=== PATIENT | female | born 1990 | race African-American/Black ===

== ENCOUNTER 2020-05-11 21:42 | Emergency (ER) | payer SELFPAY ==
[2020-05-11] MEDS ORDERED: Lorazepam 2 MG/ML VIAL ONE ×2 (21:49→23:26)
--- NOTE | 2020-05-11 22:22 | RAD ---
PORTABLE CHEST: Date: 05/11/2020 HISTORY: Fever. Seizures. FINDINGS: Heart size and mediastinum are within normal limits. Lungs appear clear of any definite infiltrative process. No significant bony findings. IMPRESSION: No active intrathoracic disease. POS: OFF
[2020-05-11 22:30] LABS: #Basophils 0.1 thou/uL (0.0-0.2); #Eosinphils 0.2 thou/uL (0.0-0.7); #Lymphocytes 2.1 thou/uL (1.20-3.40); #Monocytes 0.4 thou/uL (0.11-0.59); #Neutrophils 3.3 thou/uL (1.40-6.50); %Basophils 0.9 % (0.0-1.0); %Eosinophils 3.3 % (0.0-10.0); %Lymphocytes 35.2 % (21.0-51.0); %Monocytes 6.1 % (0.0-10.0); %Neutrophils 54.5 % (42.0-75.0); Mean Corpuscular HGB CONC 33.1 g/dL (32.0-36.0); Mean Corpuscular Hemoglobin 33.7 pg (27.0-31.0); Mean Platelet Volume 7.7 fL (7.4-10.4); Platelet Count 352 thou/uL (130-400); RBC Distribution Width 12.1 % (11.5-14.5); Red Blood Cell (RBC) Count 3.57 mill/uL (4.20-5.40)
[2020-05-11 22:33] LABS: Reticulocyte Count 1.4 % (0.5-1.5)
[2020-05-11] MEDS ORDERED: Ketorolac Tromethamine 30 MG/ML VIAL ONE (22:38)
[2020-05-11 22:46] LABS: ALT (SGPT) 14 U/L (8-55); AST (SGOT) 14 U/L (5-34); Albumin 4.1 g/dL (3.5-5.0); Alkaline Phosphatase 79 U/L (40-110); Anion Gap 18 mmol/L (10-20); BUN (Urea Nitrogen) 11 mg/dL (7.0-18.7); Bilirubin, Total Less than 0.2 mg/dL (0.2-1.2); Calc. Creatinine Clearance 0 mL/min (70-130); Calcium 8.5 mg/dL (7.8-10.44); Carbon Dioxide 19 mmol/L (22-29); Chloride 107 mmol/L (98-107); Estimated GFR-MDRD Greater than 90; Globulin 3.1 g/dL (2.4-3.5); Glucose 93 mg/dL (70-105); Potassium 4.5 mmol/L (3.5-5.1); Protein, Total 7.2 g/dL (6.0-8.3); Sodium 139 mmol/L (136-145)
[2020-05-11] MEDS ORDERED: Haloperidol Lactate 5 MG/ML VIAL ONE (23:26)
--- NOTE | 2020-05-12 14:57 | EKG ---
Test Reason : Blood Pressure : / mmHG Vent. Rate : 102 BPM Atrial Rate : 102 BPM P-R Int : 162 ms QRS Dur : 090 ms QT Int : 344 ms P-R-T Axes : 068 064 045 degrees QTc Int : 448 ms Sinus tachycardia Otherwise normal ECG Confirmed by HERNANDEZ HERNANDEZ DO ([id number]), editor publications YOSEPH BARNARD ([id number]) on 05/12/2020 2:57:05 PM Referred By: Confirmed By:HERNANDEZ HERNANDEZ DO
== END 2020-05-12 00:58 | disposition home or self-care (01) ==
LOC: ERS 21:42
DX: G40.909 Epilepsy, unspecified, not intractable, without status epilepticus (principal); G89.29 Other chronic pain; J45.909 Unspecified asthma, uncomplicated; Z79.899 Other long term (current) drug therapy
CPT/HCPCS: 36415; 71045; 80053; 80177; 83605; 83615; 84146; 85025; 85046; 93005; 94760; 96365; 96375; J1630; J1885; J1953; J2060

== ENCOUNTER 2020-05-12 08:20 | Emergency (ER) | payer SELFPAY ==
[2020-05-12 09:05] LABS: #Eosinphils 0.2 thou/uL (0.0-0.7); #Lymphocytes 1.6 thou/uL (1.20-3.40); #Monocytes 0.3 thou/uL (0.11-0.59); #Neutrophils 3.5 thou/uL (1.40-6.50); %Basophils 0.6 % (0.0-1.0); %Eosinophils 3.1 % (0.0-10.0); %Lymphocytes 28.1 % (21.0-51.0); %Monocytes 5.8 % (0.0-10.0); %Neutrophils 62.4 % (42.0-75.0); Hemoglobin 11.7 g/dL (12.0-16.0); Mean Corpuscular HGB CONC 31.9 g/dL (32.0-36.0); Mean Corpuscular Hemoglobin 33.1 pg (27.0-31.0); Mean Platelet Volume 7.3 fL (7.4-10.4); Platelet Count 344 thou/uL (130-400); RBC Distribution Width 12.3 % (11.5-14.5); Red Blood Cell (RBC) Count 3.53 mill/uL (4.20-5.40); Reticulocyte Count 1.5 % (0.5-1.5); White Blood Cell (WBC) Count 5.6 thou/uL (4.8-10.8)
[2020-05-12 09:22] LABS: BHCG - Serum Negative (NEGATIVE); Pregs Control Background? CLEAR/WHITE (CLR/WHITE); Pregs Control Bar Appear? YES (CONTROL BAR)
--- NOTE | 2020-05-12 09:25 | CT ---
CT CERVICAL SPINE WITH CORONAL AND SAGITTAL REFORMATIONS AND NO IV CONTRAST: HISTORY: Injury, neck pain FINDINGS: There is loss of cervical lordosis with mild reversal. No fracture, subluxation or facet malalignment is identified. No prevertebral soft tissue swelling is apparent. The visualized lung apices are unremarkable. IMPRESSION: No CT evidence for fracture or traumatic subluxation.
[2020-05-12 09:31] LABS: ALT (SGPT) 13 U/L (8-55); AST (SGOT) 15 U/L (5-34); Alkaline Phosphatase 71 U/L (40-110); Anion Gap 14 mmol/L (10-20); BUN (Urea Nitrogen) 9 mg/dL (7.0-18.7); Bilirubin, Total 0.2 mg/dL (0.2-1.2); Calc. Creatinine Clearance 0 mL/min (70-130); Calcium 8.5 mg/dL (7.8-10.44); Carbon Dioxide 23 mmol/L (22-29); Chloride 107 mmol/L (98-107); Estimated GFR-MDRD 89; Glucose 80 mg/dL (70-105); Sodium 140 mmol/L (136-145)
[2020-05-12] MEDS ORDERED: Ketorolac Tromethamine 30 MG/ML VIAL ONE (09:46)
--- NOTE | 2020-05-16 13:46 | EKG ---
Test Reason : SEIZURE Blood Pressure : / mmHG Vent. Rate : 088 BPM Atrial Rate : 088 BPM P-R Int : 176 ms QRS Dur : 096 ms QT Int : 362 ms P-R-T Axes : 061 059 037 degrees QTc Int : 438 ms Normal sinus rhythm Incomplete right bundle branch block Borderline ECG Confirmed by SHAHBAZ Tavarez, LAURI ([id number]), video effects editor YOSEPH BARNARD ([id number]) on 05/16/2020 1:46:12 PM Referred By: Confirmed By:LAURI HARTMANN M.D.
== END 2020-05-12 10:18 | disposition home or self-care (01) ==
LOC: ERS 08:20
DX: G40.909 Epilepsy, unspecified, not intractable, without status epilepticus (principal); J45.909 Unspecified asthma, uncomplicated; D57.1 Sickle-cell disease without crisis
CPT/HCPCS: 72125; 80053; 80177; 84703; 85025; 85046; 93005; 96374; 96375; J1885; J1953

== ENCOUNTER 2020-05-12 16:25 | Emergency (ER) | payer SELFPAY ==
[2020-05-12] MEDS ORDERED: Morphine 4 MG/ML VIAL ONE (16:58)
== END 2020-05-12 18:36 | disposition home or self-care (01) ==
LOC: ERS 16:25
DX: R56.9 Unspecified convulsions (principal); D57.1 Sickle-cell disease without crisis; J45.909 Unspecified asthma, uncomplicated; Z79.899 Other long term (current) drug therapy
CPT/HCPCS: 96372; 99284; J2270

== ENCOUNTER 2020-05-13 17:27 | Emergency (ER) | payer SELFPAY ==
[2020-05-13] MEDS ORDERED: Diazepam 5 MG TAB ONE (17:49)
[2020-05-13] MEDS ORDERED: LEVETIRACETAM IN NACL ONE (17:50)
[2020-05-13] MEDS ORDERED: levETIRAcetam 500 MG TAB PO SCH (18:00)
== END 2020-05-13 18:06 ==
LOC: ERS 17:27
DX: R56.9 Unspecified convulsions (principal); D64.9 Anemia, unspecified; J45.909 Unspecified asthma, uncomplicated; Z87.891 Personal history of nicotine dependence
CPT/HCPCS: 99281; J1953

== ENCOUNTER 2020-05-28 22:29 | Emergency (ER) | payer SELFPAY ==
[2020-05-28 23:39] LABS: Acetaminophen Less than 6.0 mcg/mL (10.0-30.0); Alcohol Less than 10 mg/dL (Less than 10); Salicylate Less than 8.0 mg/dL (15.0-30.0)
[2020-05-28 23:42] LABS: ALT (SGPT) 16 U/L (8-55); AST (SGOT) 13 U/L (5-34); Alkaline Phosphatase 75 U/L (40-110); Anion Gap 15 mmol/L (10-20); BUN (Urea Nitrogen) 12 mg/dL (7.0-18.7); Bilirubin, Total Less than 0.2 mg/dL (0.2-1.2); Calc. Creatinine Clearance 0 mL/min (70-130); Calcium 8.3 mg/dL (7.8-10.44); Carbon Dioxide 21 mmol/L (22-29); Chloride 107 mmol/L (98-107); Estimated GFR-MDRD Greater than 90; Globulin 2.8 g/dL (2.4-3.5); Glucose 105 mg/dL (70-105); Potassium 4.2 mmol/L (3.5-5.1); Protein, Total 6.8 g/dL (6.0-8.3); Sodium 139 mmol/L (136-145)
[2020-05-28] MEDS ORDERED: levETIRAcetam In NaCl (Iso-Os) 1,000 MG in Premix Bag 1 BAG IVPB SCH (23:45)
[2020-05-28] MEDS ORDERED: Ibuprofen 200 MG TAB ONE (23:53)
[2020-05-28 23:58] LABS: #Eosinphils 0.2 thou/uL (0.0-0.7); #Lymphocytes 1.9 thou/uL (1.20-3.40); #Monocytes 0.4 thou/uL (0.11-0.59); #Neutrophils 3.5 thou/uL (1.40-6.50); %Basophils 0.6 % (0.0-1.0); %Eosinophils 3.1 % (0.0-10.0); %Lymphocytes 31.9 % (21.0-51.0); %Monocytes 7.3 % (0.0-10.0); %Neutrophils 57.2 % (42.0-75.0); Hemoglobin 11.3 g/dL (12.0-16.0); Mean Corpuscular HGB CONC 33.5 g/dL (32.0-36.0); Mean Corpuscular Hemoglobin 33.9 pg (27.0-31.0); Mean Platelet Volume 7.8 fL (7.4-10.4); Platelet Count 288 thou/uL (130-400); RBC Distribution Width 12.2 % (11.5-14.5); Red Blood Cell (RBC) Count 3.34 mill/uL (4.20-5.40); White Blood Cell (WBC) Count 6.1 thou/uL (4.8-10.8)
[2020-05-28 23:59] LABS: Reticulocyte Count 1.5 % (0.5-1.5)
[2020-05-29 00:04] LABS: BHCG - Serum Negative (NEGATIVE); Pregs Control Background? CLEAR/WHITE (CLR/WHITE); Pregs Control Bar Appear? YES (CONTROL BAR)
[2020-05-29 00:08] LABS: Bilirubin Negative (Negative); Blood, Urine Negative (Negative); Clarity Clear (Clear); Glucose, Urine (Dipstick) Normal (Negative); Ketone, Urine Negative (Negative); Leukocyte Negative Leu/uL (Negative); Nitrite Negative (Negative); Protein, Urine (Dipstick) Negative (Neg-Trace); Specific Gravity, Urine 1.029 (1.002-1.036); Urobilinogen Normal mg/dL (Less than 2); pH, Urine 6.5 (5.0-9.0)
[2020-05-29 00:16] LABS: Amphetamine Not Detected (NotDetected); Barbiturates Screen Not Detected (NotDetected); Benzodiazepine Screen Detected (NotDetected); Cocaine Metabolite Screen Not Detected (NotDetected); Medtox Control Line Valid? VALID (VALID); Medtox Reader # READER 1; Methadone Not Detected (NotDetected); Methamphetamine Not Detected (NotDetected); Opiate Screen Not Detected (NotDetected); Oxycodone Screen Not Detected (NotDetected); Phencyclidine (PCP) Not Detected (NotDetected); THC/Cannabinoid Screen Not Detected (NotDetected); Tricyclic Screen Not Detected (NotDetected)
--- NOTE | 2020-05-29 05:35 | CT ---
CT BRAIN 05/28/20 PROVIDED CLINICAL HISTORY: Seizure, altered mental status. FINDINGS: No comparison. The ventricular system appears normal in size and morphology. There is no evidence for intracranial h emorrhage or mass effect. The extracranial soft tissues and osseous structures demonstrate an unremar kable CT appearance. IMPRESSION: No evidence for intracranial hemorrhage or mass effect. POS: RAYO
== END 2020-05-29 00:58 | disposition home or self-care (01) ==
LOC: ERS 22:29
DX: R56.9 Unspecified convulsions (principal); D57.1 Sickle-cell disease without crisis; J45.909 Unspecified asthma, uncomplicated; Z79.899 Other long term (current) drug therapy
CPT/HCPCS: 36415; 36416; 70450; 80053; 80177; 80306; 80307; 81003; 83605; 84703; 85025; 85046; 93005; 96365; J1953

== ENCOUNTER 2020-06-19 19:21 | Inpatient (IN) | payer OTHER, SELFPAY ==
[2020-06-19] MEDS ORDERED: Lorazepam 2 MG/ML VIAL ONE ×2 (19:26→19:30)
[2020-06-19 20:02] LABS: #Basophils 0.1 thou/uL (0.0-0.2); #Eosinphils 0.2 thou/uL (0.0-0.7); #Lymphocytes 1.8 thou/uL (1.20-3.40); #Monocytes 0.3 thou/uL (0.11-0.59); #Neutrophils 2.8 thou/uL (1.40-6.50); %Basophils 1.4 % (0.0-1.0); %Eosinophils 4.5 % (0.0-10.0); %Lymphocytes 35.1 % (21.0-51.0); %Monocytes 6.4 % (0.0-10.0); %Neutrophils 52.6 % (42.0-75.0); Hemoglobin 12.4 g/dL (12.0-16.0); Mean Corpuscular HGB CONC 32.5 g/dL (32.0-36.0); Mean Corpuscular Hemoglobin 33.3 pg (27.0-31.0); Platelet Count 293 thou/uL (130-400); RBC Distribution Width 12.1 % (11.5-14.5); Red Blood Cell (RBC) Count 3.72 mill/uL (4.20-5.40); White Blood Cell (WBC) Count 5.2 thou/uL (4.8-10.8)
[2020-06-19 20:16] LABS: Acetaminophen Less than 6.0 mcg/mL (10.0-30.0); Alcohol Less than 10 mg/dL (Less than 10); Salicylate Less than 8.0 mg/dL (15.0-30.0)
[2020-06-19 20:25] LABS: ALT (SGPT) 11 U/L (8-55); AST (SGOT) 13 U/L (5-34); Alkaline Phosphatase 66 U/L (40-110); Anion Gap 11 mmol/L (10-20); BUN (Urea Nitrogen) 9 mg/dL (7.0-18.7); Bilirubin, Total 0.2 mg/dL (0.2-1.2); Calc. Creatinine Clearance 0 mL/min (70-130); Calcium 8.4 mg/dL (7.8-10.44); Carbon Dioxide 23 mmol/L (22-29); Chloride 109 mmol/L (98-107); Estimated GFR-MDRD Greater than 90; Glucose 87 mg/dL (70-105); Sodium 139 mmol/L (136-145)
[2020-06-19] MEDS ORDERED: Morphine 4 MG/ML VIAL ONE (20:32)
[2020-06-19] MEDS ORDERED: Ondansetron PF 4 MG/2 ML Vial ONE (20:32)
[2020-06-19 20:39] LABS: Reticulocyte Count 1.2 % (0.5-1.5)
[2020-06-19 20:46] LABS: Bilirubin Negative (Negative); Blood, Urine Negative (Negative); Clarity Extra Turbid (Clear); Glucose, Urine (Dipstick) Normal (Negative); Ketone, Urine Negative (Negative); Leukocyte 500 Leu/uL (Negative); Mucous/LPF 1+ LPF (<2+); Nitrite Negative (Negative); Protein, Urine (Dipstick) 30 mg/dL (Neg-Trace); Specific Gravity, Urine 1.028 (1.002-1.036); Squamous Epithelial 21-50 HPF (0-3); Urobilinogen Normal mg/dL (Less than 2); WBC/HPF 21-50 HPF (0-3); pH, Urine 5.5 (5.0-9.0)
[2020-06-19] MEDS ORDERED: methylPREDNISolone Sod Succ/PF 125 MG/2 ML VIAL ONE (20:52)
[2020-06-19] MEDS ORDERED: diphenhydrAMINE 50 MG CAP ONE (20:52)
[2020-06-19] MEDS ORDERED: diphenhydrAMINE 50 MG/ML VIAL ONE (20:52)
[2020-06-19] MEDS ORDERED: Famotidine/PF 20 mg/2ml Vial ONE (20:52)
[2020-06-19 20:53] LABS: Bacteria/HPF 3+ HPF (None Seen)
[2020-06-19] MEDS ORDERED: Ketorolac Tromethamine 30 MG/ML VIAL ONE (21:37)
[2020-06-19] MEDS ORDERED: Promethazine HCl 25 MG/ML VIAL ONE (21:42)
--- NOTE | 2020-06-19 21:59 | RAD ---
Chest one view HISTORY: Seizures. COMPARISON: 05/11/2020. FINDINGS: Cardiac silhouette and pulmonary vasculature are unremarkable. Mediastinum is midline. No c onfluent airspace consolidation or evidence of pneumothorax. IMPRESSION : No abnormalities are demonstrated.
[2020-06-19] MEDS ORDERED: HYDROcodone/Acetaminophen 5/325 mg Tablet PO PRN (23:03)
[2020-06-19] MEDS ORDERED: Acetaminophen 325 MG TAB PO PRN (23:03)
[2020-06-19] MEDS ORDERED: Sodium Chloride 0.9% 1,000 ML IV SCH (23:15)
--- NOTE | 2020-06-19 23:16 | PDOC.HHP ---
Hospitalist HPI - History of Present Illness Seizures History of Present Illness: 29-year-old, who claims she has a history of seizure disorder and sickle cell disease presented to the emergency department due to multiple seizure episodes at home. Patient stated she is on carbamazepine and Keppra for seizures. She could not refill these medications and therefore missed taking them for 10 days. She says she was diagnosed with epilepsy at the age of 14. ED staff report patient had about 20 more episodes of seizures which was described as hands and leg shaking. According to report patient was lucid in between seizures. According to report patient stopped seizing when an ammonia capsule was placed under her nostril to alert her. Patient was given 1 g IV Keppra, a total of 4 mg of IV Ativan, there was a report she received 10 mg of IV diazepam by EMS. She was also complaining of sickle cell pain was given a dose of IV morphine. It appears patient developed a rash after the IV morphine and was given IV Benadryl and IV Solu-Medrol. Patient was groggy but easily arousable and was able to provide history. She stated her PCP Dr. Quintero prescribes her antiepileptics. She stated she was recently released from incarceration. There was no report of fever or chills or dysuria or shortness of breath or cough. Her prolactin level was high in the ED. UA suggest the presence of UTI. Hospitalist ROS - Review of Systems Other: No tongue biting, stool or urine incontinence associated with her seizures. Except as documented, all other systems reviewed and negative. - Medication Medications: Patient home medications reviewed. States she takes Keppra 500 mg a.m. and 1000 mg p.m.. Tegretol 200 mg twice daily Hospitalist History - Past Medical History Other Medical History: Seizure disorder. Sickle cell disease. - Family History Other Family History: She states her dad had sickle cell disease and mom has sickle cell trait. She states her daughter also sometimes gets seizures. - Social History Smoking Status: Former smoker Alcohol: reports: None Drugs: reports: Other (Quit abusing illicit drugs.) - Exam General Appearance: NAD General - other findings: Drowsy Eye: PERRL, anicteric sclera ENT: normocephalic atraumatic, no oropharyngeal lesions, moist mucosa Neck: supple, symmetric, no JVD, no thyromegaly Heart: RRR, no murmur, no gallops Respiratory: CTAB, no wheezes, no rales Gastrointestinal: soft, non-tender, non-distended, normal bowel sounds Extremities: no cyanosis, no edema Skin: normal turgor, no rashes Neurological: cranial nerve grossly intact, no weakness, no focal deficits Hospitalist Results - Labs Result Diagrams: 06/20/20 04:56 06/20/20 04:56 Lab results: WBC 5.2 thou/uL (4.8-10.8) 06/19/20 19:53 Hgb 12.4 g/dL (12.0-16.0) 06/19/20 19:53 Hct 38.1 % (36.0-47.0) 06/19/20 19:53 MCV 102.0 fL (78.0-98.0) H 06/19/20 19:53 Plt Count 293 thou/uL (130-400) 06/19/20 19:53 Neutrophils % 52.6 % (42.0-75.0) 06/19/20 19:53 Sodium 139 mmol/L (136-145) 06/19/20 19:53 Potassium 4.0 mmol/L (3.5-5.1) 06/19/20 19:53 Chloride 109 mmol/L (98-107) H 06/19/20 19:53 Carbon Dioxide 23 mmol/L (22-29) 06/19/20 19:53 BUN 9 mg/dL (7.0-18.7) 06/19/20 19:53 Creatinine 0.87 mg/dL (0.6-1.1) 06/19/20 19:53 Glucose 87 mg/dL (70-105) 06/19/20 19:53 Calcium 8.4 mg/dL (7.8-10.44) 06/19/20 19:53 Total Bilirubin 0.2 mg/dL (0.2-1.2) 06/19/20 19:53 AST 13 U/L (5-34) 06/19/20 19:53 ALT 11 U/L (8-55) 06/19/20 19:53 Alkaline Phosphatase 66 U/L (40-110) 06/19/20 19:53 Serum Total Protein 7.0 g/dL (6.0-8.3) 06/19/20 19:53 Albumin 4.0 g/dL (3.5-5.0) 06/19/20 19:53 Urine Ketones Negative mg/dL (Negative) 06/19/20 20:15 Urine Blood Negative (Negative) 06/19/20 20:15 Urine Nitrite Negative (Negative) 06/19/20 20:15 Ur Leukocyte Esterase 500 David/uL (Negative) A 06/19/20 20:15 Urine RBC 4-6 HPF (0-3) A 06/19/20 20:15 Urine WBC 21-50 HPF (0-3) A 06/19/20 20:15 Ur Squamous Epith Cells 21-50 HPF (0-3) A 06/19/20 20:15 Urine Bacteria 3+ HPF (None Seen) A 06/19/20 20:15 - Radiology Interpretation Chest x-ray Status: report reviewed by me (No acute intracranial abnormality.) Hospitalist H&P A/P - Problem (1) Seizures Code(s): R56.9 - UNSPECIFIED CONVULSIONS Status: Acute (2) Sickle cell disease Code(s): D57.1 - SICKLE-CELL DISEASE WITHOUT CRISIS Status: Acute (3) UTI (urinary tract infection) Status: Acute - Plan Plan: Placed under observation. Patient given loading dose IV Keppra in the ED. We will continue her home antiepileptics-oral Keppra and oral carbamazepine. Request routine EEG Neurology consult Ativan IV as needed for breakthrough seizures Treat UTI with IV Rocephin Follow urine culture Check peripheral blood smear. Given patient was a drug abuser she has a high risk for aberrant opioid. Use Toradol IV and oral [place] as needed for pain.
[2020-06-19] MEDS ORDERED: cefTRIAXone\\ROCEPHIN 1 GM in Sodium Chloride 0.9% 100 ML IVPB SCH (23:59)
[2020-06-20] MEDS: oxyCODONE/Acetaminophen 5 mg/325 mg Tablet PO PRN ×4 (01:06→19:49)
[2020-06-20] MEDS: Ketorolac Tromethamine 30 MG/ML VIAL IVP PRN ×3 (05:00→18:48)
[2020-06-20 05:28] LABS: #Lymphocytes 0.7 thou/uL (1.20-3.40); #Monocytes 0.1 thou/uL (0.11-0.59); %Basophils 0.2 % (0.0-1.0); %Eosinophils 0.1 % (0.0-10.0); %Monocytes 2.1 % (0.0-10.0); %Neutrophils 85.6 % (42.0-75.0); Hemoglobin 11.5 g/dL (12.0-16.0); Mean Corpuscular HGB CONC 33.1 g/dL (32.0-36.0); Mean Corpuscular Hemoglobin 33.7 pg (27.0-31.0); Mean Platelet Volume 8.4 fL (7.4-10.4); Platelet Count 269 thou/uL (130-400); RBC Distribution Width 12.1 % (11.5-14.5); White Blood Cell (WBC) Count 5.9 thou/uL (4.8-10.8)
[2020-06-20 05:49] LABS: Anion Gap 9 mmol/L (10-20); BUN (Urea Nitrogen) 9 mg/dL (7.0-18.7); Calc. Creatinine Clearance 151 mL/min (70-130); Calcium 7.7 mg/dL (7.8-10.44); Carbon Dioxide 23 mmol/L (22-29); Chloride 111 mmol/L (98-107); Estimated GFR-MDRD Greater than 90; Glucose 176 mg/dL (70-105); Potassium 4.3 mmol/L (3.5-5.1); Sodium 139 mmol/L (136-145)
[2020-06-20] MEDS: Lorazepam 2 MG/ML VIAL SLOW IVP PRN ×4 (08:02→20:32)
[2020-06-20] MEDS: Enoxaparin Sodium 40 MG/0.4 ML SYRINGE SC SCH (09:22)
[2020-06-20] MEDS: levETIRAcetam 500 MG TAB PO SCH ×2 (09:22→21:53)
[2020-06-20] MEDS ORDERED: clonazePAM 1 MG TAB PO SCH (09:30)
--- NOTE | 2020-06-20 11:05 | EKG ---
Test Reason : Blood Pressure : / mmHG Vent. Rate : 124 BPM Atrial Rate : 124 BPM P-R Int : 146 ms QRS Dur : 092 ms QT Int : 316 ms P-R-T Axes : 067 081 045 degrees QTc Int : 453 ms Sinus tachycardia Incomplete right bundle branch block Borderline ECG Confirmed by HOLLEY TALAVERA DO ([id number]), acquisition editor CASEY KENNEDY ([id number]) on 06/20/2020 11:04:53 AM Referred By: Confirmed By:HOLLEY TALAVERA DO
[2020-06-20 12:11] LABS: SARS-CoV-2 MS2 Positive; SARS-CoV-2 N Gene Negative; SARS-CoV-2 S Gene Negative; SARS-CoV-2 by NAA Not Detected (NotDetected); SARS-CoV-2 orf1ab Negative
[2020-06-20] MEDS ORDERED: Morphine 4 MG/ML VIAL SLOW IVP SCH (12:15)
[2020-06-20] MEDS: cefTRIAXone\\ROCEPHIN 2 GM in Sodium Chloride 0.9% 100 ML IVPB SCH (12:32)
--- NOTE | 2020-06-20 12:35 | PDOC.HOSPP ---
- Subjective Encounter Date: 06/20/20 Encounter Time: 12:30 Subjective: f/u for recurrent seizures in context of chronic epilepsy off Tegretol for about 10 days prior to admit. States takes Keppra and Tegretol typically as outpt. Also states taking Hydroxyurea due to SS disease. - Objective Vital Signs & Weight: Vital Signs (12 hours) Temp Pulse Resp BP Pulse Ox 06/20/20 08:00 98 F 78 19 110/56 L 99 06/20/20 03:44 98.0 F 64 18 93/52 L 95 Weight Weight 201 lb I&O: 06/19/20 06/20/20 06/21/20 06:59 06:59 06:59 Intake Total 525 Balance 525 Result Diagrams: 06/20/20 04:56 06/20/20 04:56 Additional Labs: Laboratory Tests 06/19/20 06/19/20 06/19/20 19:45 19:53 19:53 Hgb 12.4 Retic Count 1.2 Immature Retic Fraction 0.168 Prolactin Levetiracetam Plasma Alcohol Less than 10 06/19/20 06/19/20 19:53 19:53 Hgb Retic Count Immature Retic Fraction Prolactin 52.35 H Levetiracetam 42.7 Plasma Alcohol Radiology Reviewed by me: Yes (PCXR - neg) EKG Reviewed by me: Yes (Tele - SR) Hospitalist ROS - Medication Medications: Active Medications Generic Name Dose Route Start Last Admin Trade Name Freq PRN Reason Stop Dose Admin Carbamazepine 200 mg 06/20/20 08:00 06/20/20 09:21 Carbamazepine Xr 200 Mg Tablet PO 200 mg BID-WM GONZALES Administration Enoxaparin Sodium 40 mg 06/20/20 09:00 06/20/20 09:22 Enoxaparin Sodium 40 Mg/0.4 Ml Syringe SC 40 mg 0900 GONZALES Administration Sodium Chloride 1,000 mls @ 75 mls/hr 06/19/20 23:15 06/20/20 01:07 Normal Saline 0.9% IV 1,000 mls .[id number] GONZALES Administration Levetiracetam 1,000 mg 06/20/20 09:00 06/20/20 09:22 Levetiracetam 500 Mg Tab PO 1,000 mg BID GONZALES Administration Lorazepam 2 mg 06/19/20 23:27 06/20/20 11:16 Lorazepam 2 Mg/Ml Vial SLOW IVP 2 mg Q4H PRN Administration Seizures Oxycodone/Acetaminophen 1 tab 06/20/20 00:52 06/20/20 09:21 Oxycodone/Acetaminophen 5 Mg/325 Mg Tablet PO 1 tab Q4H PRN Administration Moderate Pain (4-6) - Exam General - other findings: crying and anxious Eye: PERRL, anicteric sclera ENT: normocephalic atraumatic, no oropharyngeal lesions Neck: supple, symmetric, no JVD, no thyromegaly, no lymphadenopathy Heart: RRR, no murmur, no gallops, no rubs, normal peripheral pulses Heart - other findings: S1, S2 Respiratory: CTAB, no wheezes, no rales, no ronchi, normal chest expansion, no tachypnea Gastrointestinal: soft, non-tender, non-distended, normal bowel sounds, no p alpable masses Extremities: no cyanosis, no clubbing, no edema Skin: normal turgor, no lesions Neurological: cranial nerve grossly intact, no new deficit Musculoskeletal: normal tone, normal strength, no muscle wasting Psychiatric: A&O x 3 Psychiatric - other findings: crying Hosp A/P (1) Seizures Code(s): R56.9 - UNSPECIFIED CONVULSIONS Status: Acute Plan: Recurrent likely due to non-compliance with Tegretol, continue Keppra and Tegretol, Ativan IV PRN breakthrough (2) UTI (urinary tract infection) Status: Acute Plan: Continue Rocephin pending final Ucx results (3) Sickle cell disease Code(s): D57.1 - SICKLE-CELL DISEASE WITHOUT CRISIS Status: Acute Plan: ? SS flare, serial reticulocyte count, Morphine Sulfate IV, Toradol IV, serial H/H - Plan continue antibiotics, social science research assistant, out of bed/ambulate, DVT proph w/SCDs Stable currently Continue Keppra/Tegretol Ativan IV PRN breakthrough seizures Morphine Sulfate 4mg IV q4h prn Toradol 30mg IV q6h Start Hydroxyurea 500mg po BID AM lab: CMP, CBC, Reticulocyte count Convert to inpt status
[2020-06-20] MEDS ORDERED: Hydroxyurea 500 MG CAP PO SCH ×2 (12:45)
[2020-06-20] MEDS: clonazePAM 1 MG TAB PO SCH ×2 (13:50→21:53)
[2020-06-20] MEDS: diphenhydrAMINE 50 MG/ML VIAL IVP PRN (13:51)
[2020-06-20] MEDS: Morphine 4 MG/ML VIAL SLOW IVP PRN (16:40)
[2020-06-20] MEDS ORDERED: Ondansetron PF 4 MG/2 ML Vial SLOW IVP PRN (18:35)
[2020-06-20] MEDS ORDERED: Promethazine HCl 25 MG in Sodium Chloride 0.9% 50 ML IVPB PRN (19:14)
--- NOTE | 2020-06-20 21:38 | PDOC.EVN ---
Event Note - Event Note Event Note: Nurses calling to report that patient is requiring a lot of their time, has been having a lot of seizure like activity tonight and are requesting a higher level of care overnight. Dr. Mccord consulted, who agreed to put her on IMCU overnight for observation.
[2020-06-20] MEDS: Hydroxyurea 500 MG CAP PO SCH (21:53)
[2020-06-20] MEDS: Sodium Chloride 0.9% 1,000 ML IV SCH (23:38)
[2020-06-20 23:57] VITALS: BMI 31.1
[2020-06-21] MEDS: oxyCODONE/Acetaminophen 5 mg/325 mg Tablet PO PRN ×3 (03:37→20:54)
[2020-06-21] MEDS: Ketorolac Tromethamine 30 MG/ML VIAL IVP PRN ×3 (03:38→16:15)
[2020-06-21 03:58] LABS: Reticulocyte Count 1.4 % (0.5-1.5)
[2020-06-21 04:00] LABS: #Basophils 0.1 thou/uL (0.0-0.2); #Eosinphils 0.1 thou/uL (0.0-0.7); #Lymphocytes 3.4 thou/uL (1.20-3.40); #Monocytes 0.4 thou/uL (0.11-0.59); #Neutrophils 3.5 thou/uL (1.40-6.50); %Basophils 1.2 % (0.0-1.0); %Lymphocytes 44.9 % (21.0-51.0); %Neutrophils 46.9 % (42.0-75.0); Hemoglobin 10.6 g/dL (12.0-16.0); Mean Corpuscular Hemoglobin 33.6 pg (27.0-31.0); Platelet Count 251 thou/uL (130-400); Red Blood Cell (RBC) Count 3.15 mill/uL (4.20-5.40); White Blood Cell (WBC) Count 7.5 thou/uL (4.8-10.8)
[2020-06-21 04:23] LABS: ALT (SGPT) 11 U/L (8-55); AST (SGOT) 11 U/L (5-34); Albumin 3.3 g/dL (3.5-5.0); Alkaline Phosphatase 57 U/L (40-110); Anion Gap 12 mmol/L (10-20); BUN (Urea Nitrogen) 10 mg/dL (7.0-18.7); Bilirubin, Total Less than 0.2 mg/dL (0.2-1.2); Calc. Creatinine Clearance 152 mL/min (70-130); Calcium 8.3 mg/dL (7.8-10.44); Carbon Dioxide 22 mmol/L (22-29); Chloride 110 mmol/L (98-107); Estimated GFR-MDRD Greater than 90; Globulin 2.5 g/dL (2.4-3.5); Glucose 94 mg/dL (70-105); Potassium 3.9 mmol/L (3.5-5.1); Protein, Total 5.8 g/dL (6.0-8.3); Sodium 140 mmol/L (136-145)
[2020-06-21] MEDS: clonazePAM 1 MG TAB PO SCH ×3 (09:06→20:54)
[2020-06-21] MEDS: levETIRAcetam 500 MG TAB PO SCH ×2 (09:06→20:54)
[2020-06-21] MEDS: Hydroxyurea 500 MG CAP PO SCH (09:36)
[2020-06-21] MEDS: Sodium Chloride 0.9% 1,000 ML IV SCH ×2 (09:39→16:17)
[2020-06-21] MEDS: Enoxaparin Sodium 40 MG/0.4 ML SYRINGE SC SCH (09:39)
--- NOTE | 2020-06-21 10:53 | CON ---
DATE OF CONSULTATION: 06/20/2020 CONSULTING PHYSICIAN: Hospitalist Service. 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 2. Reported sickle-cell crisis. PLAN: 1. Continue Keppra and Tegretol. 2. Add Klonopin 1 mg three times a day. 3. Treatment of sickle cell at your discretion. HISTORY OF PRESENT ILLNESS: Ms. Whyte is a 29-year-old black female, who recently was released from halfway. She reportedly has had a history of seizures since she was young. She was followed by neurologist in [place]. She has previously taken Dilantin, which apparently caused side effects. She was subsequently switched to Tegretol, which reportedly worked reasonably well until she was . She was switched over to Keppra and after the , the Tegretol was restarted and her seizures have never been completely controlled. She was recently released from halfway and came into the emergency room last night. She was having multiple generalized appearing events. Her bicarb level was never suppressed. Her prolactin level was 52. Her workup was otherwise positive for urinary tract infection. She is complaining of bilateral knee pain, which she attributes to her sickle cell. She has had this in the past. She reports that morphine is the only effective medication, although it makes her itch. Benadryl was usually helpful in controlling the side effect. She has been restarted on her Tegretol. Her Keppra level was therapeutic at 47. She is still having episodes this morning. I have reviewed a video taken by one of the nurses. The event is suspicious for pseudoseizures. I confronted her with the question, but she denies that she has pseudoseizures and claims that all her seizures are real. PAST MEDICAL HISTORY: As listed above. ALLERGIES: PER CHART. SOCIAL HISTORY: No current tobacco, alcohol, or drug use. FAMILY HISTORY: Noncontributory. MEDICATIONS: List was reviewed. REVIEW OF SYSTEMS: Ten-system review of systems is otherwise negative. PHYSICAL EXAMINATION: VITAL SIGNS: Have been stable. She is afebrile. HEENT: Pupils are equal and reactive. Conjunctivae clear. Oropharynx clear. No tongue trauma is present. NECK: Supple. ABDOMEN: A bit rotund, but nontender. EXTREMITIES: No cyanosis or edema. SKIN: Clear. NEUROLOGIC: She is alert and appropriate. She answers questions appropriately. There is no agitation or delirium. She had nothing focal on exam. DIAGNOSTIC STUDIES: Studies were reviewed. SUMMARY: The clinical picture is definitely suspicious for embellished symptomatology. It is difficult to say whether she is actually having sickle crisis. I leave that up to you to decide. Adding Klonopin to see if it will calm her down and maybe prevent further attacks. Job ID: [id number]
--- NOTE | 2020-06-21 11:26 | PDOC.HOSPP ---
- Subjective Encounter Date: 06/21/20 Encounter Time: 11:15 Subjective: f/u for seizure disorder and breakthrough seizures. Nursing reports pt more calm this am and no definitive seizures noted. Receiving Tegretol/Keppra/Klonopin. Has been c/o pain due to Sickle cell dz receiving Morphine/Toradol. - Objective Vital Signs & Weight: Vital Signs (12 hours) Temp Pulse Ox 06/21/20 08:00 97.8 F 06/21/20 07:38 97 06/21/20 04:00 98.4 F 06/21/20 02:00 98.1 F Weight Weight 205 lb 0.478 oz Most Recent Monitor Data Heart Rate from ECG 88 NIBP 99/50 NIBP BP-Mean 66 Respiration from ECG 18 SpO2 94 I&O: 06/20/20 06/21/20 06/22/20 06:59 06:59 06:59 Intake Total 525 1562 Output Total 0 300 Balance 525 1562 -300 Result Diagrams: 06/21/20 03:48 06/21/20 03:48 Additional Labs: Laboratory Tests 06/19/20 06/19/20 06/19/20 19:45 19:53 19:53 Hgb 12.4 Retic Count 1.2 Immature Retic Fraction 0.168 Prolactin Levetiracetam Plasma Alcohol Less than 10 06/19/20 06/19/20 06/21/20 19:53 19:53 03:48 Hgb Retic Count 1.4 Immature Retic Fraction 0.226 Prolactin 52.35 H Levetiracetam 42.7 Plasma Alcohol EKG Reviewed by me: Yes (Tele - SR) Hospitalist ROS - Medication Medications: Active Medications Generic Name Dose Route Start Last Admin Trade Name Freq PRN Reason Stop Dose Admin Carbamazepine 200 mg 06/20/20 08:00 06/21/20 09:36 Carbamazepine Xr 200 Mg Tablet PO 200 mg BID-WM GONZALES Administration Clonazepam 1 mg 06/20/20 15:00 06/21/20 09:06 Clonazepam 1 Mg Tab PO 1 mg TID GONZALES Administration Diphenhydramine HCl 25 mg 06/20/20 13:04 06/20/20 13:51 Diphenhydramine 50 Mg/Ml Vial IVP 25 mg Q6H PRN Administration Itching Enoxaparin Sodium 40 mg 06/20/20 09:00 06/21/20 09:39 Enoxaparin Sodium 40 Mg/0.4 Ml Syringe SC 40 mg 0900 GONZALES Administration Ceftriaxone Sodium 2 gm/ 100 mls @ 200 mls/hr 06/20/20 13:00 06/20/20 12:32 Sodium Chloride IVPB 100 mls 1300 GONZALES Administration Sodium Chloride 1,000 mls @ 100 mls/hr 06/20/20 12:39 06/21/20 09:39 Normal Saline 0.9% IV 1,000 mls .Q10H GONZALES Administration Ketorolac Tromethamine 30 mg 06/20/20 12:20 06/21/20 05:32 Ketorolac Tromethamine 30 Mg/Ml Vial IVP 06/24/20 23:04 30 mg Q6H PRN Administration Severe Pain (7-10) Levetiracetam 1,000 mg 06/20/20 09:00 06/21/20 09:06 Levetiracetam 500 Mg Tab PO 1,000 mg BID GONZALES Administration Lorazepam 4 mg 06/20/20 16:17 06/20/20 20:32 Lorazepam 2 Mg/Ml Vial SLOW IVP 4 mg Q4H PRN Administration ACTIVE Seizures Morphine Sulfate 4 mg 06/20/20 12:15 06/20/20 16:40 Morphine 4 Mg/Ml Vial SLOW IVP 4 mg Q4H PRN Administration Moderate to Severe Pain (6-10) Oxycodone/Acetaminophen 1 tab 06/20/20 00:52 06/21/20 09:38 Oxycodone/Acetaminophen 5 Mg/325 Mg Tablet PO 1 tab Q4H PRN Administration Moderate Pain (4-6) - Exam General Appearance: NAD General - other findings: groggy, states 1-2 words then falls asleep Eye: PERRL, anicteric sclera ENT: normocephalic atraumatic, no oropharyngeal lesions Neck: supple, symmetric, no JVD, no thyromegaly, no lymphadenopathy Heart: RRR, no murmur, no gallops, no rubs, normal peripheral pulses Heart - other findings: S1, S2 Respiratory: CTAB, no wheezes, no rales, no ronchi, normal chest expansion, no tachypnea Gastrointestinal: soft, non-tender, non-distended, normal bowel sounds, no palpable masses, no guarding Extremities: no cyanosis, no clubbing, no edema Skin: normal turgor, no lesions Neurological: cranial nerve grossly intact, no new deficit Musculoskeletal: normal tone, normal strength, no muscle wasting Psychiatric: oriented to person, flat affect, somnolent, lethargic Hosp A/P (1) Seizures Code(s): R56.9 - UNSPECIFIED CONVULSIONS Status: Acute Plan: Continue Tegretol/Keppra/Klonopin, plan for EEG 06/22/20 (2) UTI (urinary tract infection) Status: Acute Plan: Continue Rocephin another 24h then de-escalate (3) Sickle cell disease Code(s): D57.1 - SICKLE-CELL DISEASE WITHOUT CRISIS Status: Acute Plan: ? SS disease, may need outpt testing to confirm validity - Plan continue antibiotics, long term care social worker, out of bed/ambulate, DVT proph w/SCDs Stable currently Continue Keppra/Tegretol Ativan IV PRN breakthrough seizures Morphine Sulfate 4mg IV q4h prn, de-escalate pain meds Toradol 30mg IV q6h D/C Hydroxyurea AM lab: CMP, CBC, Reticulocyte count, LDH Convert to inpt status Transfer back to Stroke Unit
[2020-06-21] MEDS: Lorazepam 2 MG/ML VIAL SLOW IVP PRN ×3 (12:30→20:55)
[2020-06-21] MEDS: cefTRIAXone\\ROCEPHIN 2 GM in Sodium Chloride 0.9% 100 ML IVPB SCH (13:37)
[2020-06-21] MEDS ORDERED: carBAMazepine 200 MG TAB PO SCH (14:00)
[2020-06-21] MEDS: Morphine 4 MG/ML VIAL SLOW IVP PRN ×3 (14:06→22:51)
[2020-06-21 16:44] VITALS: BP 103/69
[2020-06-21] MEDS: diphenhydrAMINE 50 MG/ML VIAL IVP PRN (22:54)
[2020-06-22] MEDS: Ketorolac Tromethamine 30 MG/ML VIAL IVP PRN (00:41)
[2020-06-22] MEDS: Sodium Chloride 0.9% 1,000 ML IV SCH ×2 (03:25→13:39)
[2020-06-22] MEDS: Morphine 4 MG/ML VIAL SLOW IVP PRN (03:49)
[2020-06-22 04:06] LABS: ALT (SGPT) 11 U/L (8-55); AST (SGOT) 13 U/L (5-34); Albumin 2.8 g/dL (3.5-5.0); Alkaline Phosphatase 49 U/L (40-110); Anion Gap 11 mmol/L (10-20); BUN (Urea Nitrogen) 10 mg/dL (7.0-18.7); Bilirubin, Total Less than 0.2 mg/dL (0.2-1.2); Calc. Creatinine Clearance 162 mL/min (70-130); Calcium 7.5 mg/dL (7.8-10.44); Carbon Dioxide 19 mmol/L (22-29); Chloride 110 mmol/L (98-107); Estimated GFR-MDRD Greater than 90; Globulin 2.7 g/dL (2.4-3.5); Glucose 80 mg/dL (70-105); Potassium 3.9 mmol/L (3.5-5.1); Protein, Total 5.5 g/dL (6.0-8.3); Sodium 136 mmol/L (136-145)
[2020-06-22] MEDS: diphenhydrAMINE 50 MG/ML VIAL IVP PRN (05:57)
[2020-06-22] MEDS: levETIRAcetam 500 MG TAB PO SCH (08:55)
[2020-06-22] MEDS: oxyCODONE/Acetaminophen 5 mg/325 mg Tablet PO PRN ×2 (08:56→17:16)
[2020-06-22] MEDS: clonazePAM 1 MG TAB PO SCH ×2 (08:56→17:17)
[2020-06-22] MEDS: Enoxaparin Sodium 40 MG/0.4 ML SYRINGE SC SCH (08:57)
--- NOTE | 2020-06-22 11:44 | PDOC.EEG ---
Neurology EEG Report - EEG Classification Date: 06/22/20 Indication: Seizure-like activity - Report Report: This EEG was performed using 24 channel [employer] video digital EEG machine with 24 disc electrode as well as an extended 2-hour 6 minutes of inpatient video EEG recording. Digital analysis of the EEG was done for Jay and seizure detection which revealed no abnormalities. Background: The posterior background rhythm is 10 to 12 Hz low amplitude EEG with excessive beta activity intermixed with the background. Photic stimulation: No significant response seen with photic stimulation. The patient had 2 spells during photic stimulation not associated with any abnormal EEG correlate. Hyperventilation: Not performed Spells: Multiple spells characterized by shaking with eyes closed and [id number] head shaking captured during this recording lasting for less than a minute each. The spells were not associated with any abnormal EEG correlate and therefore nonepileptic in nature. EEG diagnosis: 1. Normal awake and drowsy EEG. Clinical interpretation: This is a normal EEG study. The spells captured during the EEG recording were not associated with any abnormal EEG correlate and therefore nonepileptic in naturepseudoseizures.
--- NOTE | 2020-06-22 13:02 | PDOC.NEUPN ---
- Subjective Encounter Date: 06/22/20 Subjective: Patient is alert oriented and complained of pain - Objective Vital Signs & Weight: Vital Signs (12 hours) Temp Resp Pulse Ox 06/22/20 08:00 99 06/22/20 07:40 97.4 F L 06/22/20 04:00 18 06/22/20 03:55 97.0 F L 06/22/20 02:00 16 Weight Weight 205 lb 0.478 oz Most Recent Monitor Data Heart Rate from ECG 62 NIBP 96/70 NIBP BP-Mean 78 Respiration from ECG 4 SpO2 95 I&O: 06/21/20 06/22/20 06/23/20 06:59 06:59 06:59 Intake Total 1562 2031 Output Total 0 500 Balance 1562 1531 Result Diagrams: 06/21/20 03:48 06/22/20 03:39 Radiology Reviewed by me: Yes EKG Reviewed by me: Yes ROS - Review of Systems Constitutional: denies: fever, chills, sweats, weakness, malaise, other Eyes: denies: pain, vision change, conjunctivae inflammation, eyelid inflammation, redness, other ENT: denies: ear pain, ear discharge, nose pain, nose discharge, nose congestion, mouth pain, mouth swelling, throat pain, throat swelling, other Respiratory: denies: cough, dry, shortness of breath, hemoptysis, SOB with excertion, pleuritic pain, sputum, wheezing, other Musculoskeletal: reports: neck pain, arm pain. denies: shoulder pain, back pain, hand pain, leg pain, foot pain, other Neurological: reports: confusion. denies: weakness, numbness, incoordination, change in speech, seizures, other All Systems: All other systems reviewed; all pertinent +/- noted in HPI/Subj - Medication Medications: Active Medications Generic Name Dose Route Start Last Admin Trade Name Freq PRN Reason Stop Dose Admin Carbamazepine 200 mg 06/21/20 21:00 06/22/20 08:56 Carbamazepine Xr 200 Mg Tablet PO 200 mg TID GONZALES Administration Clonazepam 1 mg 06/20/20 15:00 06/22/20 08:56 Clonazepam 1 Mg Tab PO 1 mg TID GONZLAES Administration Diphenhydramine HCl 25 mg 06/20/20 13:04 06/22/20 05:57 Diphenhydramine 50 Mg/Ml Vial IVP 25 mg Q6H PRN Administration Itching Enoxaparin Sodium 40 mg 06/20/20 09:00 06/22/20 08:57 Enoxaparin Sodium 40 Mg/0.4 Ml Syringe SC 40 mg 0900 GONZALES Administration Ceftriaxone Sodium 2 gm/ 100 mls @ 200 mls/hr 06/20/20 13:00 06/21/20 13:37 Sodium Chloride IVPB 100 mls 1300 GONZALES Administration Sodium Chloride 1,000 mls @ 100 mls/hr 06/20/20 12:39 06/22/20 03:25 Normal Saline 0.9% IV 1,000 mls .Q10H GONZALES Administration Ketorolac Tromethamine 30 mg 06/20/20 12:20 06/22/20 00:41 Ketorolac Tromethamine 30 Mg/Ml Vial IVP 06/24/20 23:04 30 mg Q6H PRN Administration Severe Pain (7-10) Levetiracetam 1,500 mg 06/21/20 21:00 06/22/20 08:55 Levetiracetam 500 Mg Tab PO 1,500 mg BID GONZALES Administration Lorazepam 4 mg 06/20/20 16:17 06/21/20 20:55 Lorazepam 2 Mg/Ml Vial SLOW IVP 4 mg Q4H PRN Administration ACTIVE Seizures Morphine Sulfate 4 mg 06/20/20 12:15 06/22/20 03:49 Morphine 4 Mg/Ml Vial SLOW IVP 4 mg Q4H PRN Administration Moderate to Severe Pain (6-10) Oxycodone/Acetaminophen 1 tab 06/20/20 00:52 06/22/20 08:56 Oxycodone/Acetaminophen 5 Mg/325 Mg Tablet PO 1 tab Q4H PRN Administration Moderate Pain (4-6) - Exam General Appearance: awake alert Eye: PERRL ENT: normocephalic atraumatic Neck: supple Respiratory: CTAB Cardiovascular: RRR Gastrointestinal: soft Extremities: no cyanosis Skin: normal turgor Neurological: no focal deficits Musculoskeletal: normal tone, normal strength, no muscle wasting PSYCH: normal affect, normal behavior, A&O x 3 Results - Labs Result Diagrams: 06/21/20 03:48 06/22/20 03:39 Lab results: WBC 7.5 thou/uL (4.8-10.8) 06/21/20 03:48 Hgb 10.6 g/dL (12.0-16.0) L 06/21/20 03:48 Hct 32.1 % (36.0-47.0) L 06/21/20 03:48 MCV 102.0 fL (78.0-98.0) H 06/21/20 03:48 Plt Count 251 thou/uL (130-400) 06/21/20 03:48 Neutrophils % 46.9 % (42.0-75.0) 06/21/20 03:48 Sodium 136 mmol/L (136-145) 06/22/20 03:39 Potassium 3.9 mmol/L (3.5-5.1) 06/22/20 03:39 Chloride 110 mmol/L (98-107) H 06/22/20 03:39 Carbon Dioxide 19 mmol/L (22-29) L 06/22/20 03:39 BUN 10 mg/dL (7.0-18.7) 06/22/20 03:39 Creatinine 0.76 mg/dL (0.6-1.1) 06/22/20 03:39 Glucose 80 mg/dL (70-105) 06/22/20 03:39 Calcium 7.5 mg/dL (7.8-10.44) L 06/22/20 03:39 Total Bilirubin Less than 0.2 mg/dL (0.2-1.2) L 06/22/20 03:39 AST 13 U/L (5-34) 06/22/20 03:39 ALT 11 U/L (8-55) 06/22/20 03:39 Alkaline Phosphatase 49 U/L (40-110) 06/22/20 03:39 Serum Total Protein 5.5 g/dL (6.0-8.3) L 06/22/20 03:39 Albumin 2.8 g/dL (3.5-5.0) L 06/22/20 03:39 Urine Ketones Negative mg/dL (Negative) 06/19/20 20:15 Urine Blood Negative (Negative) 06/19/20 20:15 Urine Nitrite Negative (Negative) 06/19/20 20:15 Ur Leukocyte Esterase 500 David/uL (Negative) A 06/19/20 20:15 Urine RBC 4-6 HPF (0-3) A 06/19/20 20:15 Urine WBC 21-50 HPF (0-3) A 06/19/20 20:15 Ur Squamous Epith Cells 21-50 HPF (0-3) A 06/19/20 20:15 Urine Bacteria 3+ HPF (None Seen) A 06/19/20 20:15 PN A/P (1) Seizure-like activity Code(s): R56.9 - UNSPECIFIED CONVULSIONS Status: Acute (2) Seizures Code(s): R56.9 - UNSPECIFIED CONVULSIONS Status: Acute (3) Sickle cell disease Code(s): D57.1 - SICKLE-CELL DISEASE WITHOUT CRISIS Status: Acute (4) UTI (urinary tract infection) Status: Acute - Plan Daily Plan: PT/OT 29-year-old female with history significant for chronic pain, seizure disorder and nonepileptic spells presented with multiple episodes of seizure-like activity. EEG reviewed which was consistent with multiple episodes of seizure-like activity characterized by [id number] and [id number] head shaking with santos ing of the body. Eyes were closed during that time. No abnormal electrographic seizures seen during the recording during that time range. These were nonepileptic spellspseudoseizures. Continue home medications including current anticonvulsants. Neurochecks every 4 hours. Ativan 2 mg IV for seizure greater than 2 minutes. These episodes which she is currently having are not seizures. The management of psychogenic nonepileptic spells is psychotherapy not anticonvulsant medications so no additional medicine is needed at this time. Continue medical management per primary team. PT/OT/speech. Plan discussed with the nursing staff . Patient was made aware that she may have epilepsy which is controlled on current anticonvulsant but the current spells seem to be stress-induced spells.
[2020-06-22 13:19] VITALS: TEMP 98.2
[2020-06-22] MEDS: cefTRIAXone\\ROCEPHIN 2 GM in Sodium Chloride 0.9% 100 ML IVPB SCH (13:39)
--- NOTE | 2020-06-22 22:44 | DIS ---
DATE OF ADMISSION: 06/20/2020 DATE OF DISCHARGE: 06/22/2020 DISCHARGE DIAGNOSES: 1. Pseudoseizures/nonepileptic spells. 2. Question of epilepsy with negative EEG. 3. Chronic pain syndrome. 4. Drug-seeking behavior. 5. Question of sickle cell trait versus disease. CONSULTATIONS: Dr. Rizvi and Dr. Head with Neurology Service. PERTINENT LABORATORY AND X-RAY FINDINGS: Prolactin level 52.4. CBC showed a hemoglobin ranging between 10.6 to 12.4, MCV 102, reticulocyte count ranged between 1.2 to 1.4. Keppra level 42.7, 06/19/2020. Plasma alcohol level less than 10. COVID-19 PCR not detected 06/19/2020. Urine culture dated 06/19/2020 showed no growth at 48 hours. Portable chest x-ray dated 06/19/2020 showed no acute cardiopulmonary process. EEG dated 06/22/2020 showed no abnormal electrographic seizure activity during seizure-like activity episodes. HOSPITAL COURSE: The patient was initially admitted after presenting from [facility] for seizure-like activity and question of sickle cell disease with multiple seizure episodes prior to admission in the emergency room. The patient apparently off Tegretol for approximately 10 days, but was taking Keppra during her stay at [facility]. The patient initially received 1 g of IV Keppra and 4 mg of IV Ativan and 10 mg of IV diazepam in the emergency room. The patient was noted with seizure-like activity and evaluated by the Neurology Service. The patient was titrated on Tegretol and Keppra. In addition, received multiple doses of Ativan for recurrent seizure-like activity. The patient was monitored on the Stroke Unit as well as the Critical Care and Intermediate Care Unit after concern for repetitive seizure-like activity. The patient underwent evaluation including EEG showed no evidence of seizure activity or abnormal electrographic recordings during the seizure-like episodes. Current diagnosis is pseudoseizures with recommendations for outpatient psychiatric evaluation. The patient continued to request multiple pain medications and was conflictual with the nursing staff on multiple occasions. Due to the patient's lack of clinical findings and persistent drug-seeking behavior, the patient will be discharged on 06/22/2020. DISCHARGE MEDICATIONS: 1. Keppra 500 mg p.o. t.i.d. 2. Tegretol XR 200 mg p.o. t.i.d. FOLLOWUP: The patient may follow up with her primary care provider of choice. CONDITION ON DISCHARGE: Stable. ACTIVITY: Ad diana. DIET: Regular. SPECIAL INSTRUCTIONS: The patient does not need any further evaluation or monitoring for seizures as the EEG performed 06/22/2020 showed no evidence of seizure activity. The patient may follow up with [facility] after returning to her hometown in the [facility] area. CODE STATUS: Full. DISPOSITION: Discharged to [facility] 06/22/2020. TIME SPENT: Total time preparing and coordinating discharge is 35 minutes. Job ID: [id number]
== END 2020-06-22 18:39 | disposition home or self-care (01) | DRG 880 ==
LOC: ERS 19:21 → 2SE 22:27 → OBSVTOIN 06-20 12:18 → CCU 06-20 22:01 → 2SE 06-21 12:20 → IMCU/EMU 06-21 20:05
PROVIDERS: ADMIT Internal Medicine; ATTEND Internal Medicine
DX: F44.5 Conversion disorder with seizures or convulsions (principal); N39.0 Urinary tract infection, site not specified; G89.4 Chronic pain syndrome; D57.1 Sickle-cell disease without crisis; Z20.828 Contact with and (suspected) exposure to other viral communicable diseases; J45.909 Unspecified asthma, uncomplicated; G40.909 Epilepsy, unspecified, not intractable, without status epilepticus; Z76.5 Malingerer [conscious simulation]; Z87.891 Personal history of nicotine dependence; Z79.899 Other long term (current) drug therapy
CPT/HCPCS: 36415; 51701; 71045; 80048; 80053; 80177; 80307; 81003; 81015; 84146; 85025; 85046; 87086; 87635; 93005; 95712; 95819; 95957; 96365; 96372; 96375; 96376; G0378; J0696; J1200; J1650; J1885; J1953; J2060; J2270; J2405; J2550; J2930; J3490; S0028; U0003

== ENCOUNTER 2020-06-22 20:31 | Emergency (ER) | payer SELFPAY | END 2020-06-22 21:37 | disposition home or self-care (01) | LOC: ERS 20:31 | DX: R56.9 Unspecified convulsions (principal); J45.909 Unspecified asthma, uncomplicated; Z79.899 Other long term (current) drug therapy | CPT/HCPCS: 99284 ==

== ENCOUNTER 2020-06-23 17:42 | Emergency (ER) | payer SELFPAY ==
[2020-06-23] MEDS ORDERED: Haloperidol Lactate 5 MG/ML VIAL ONE (18:03)
[2020-06-23] MEDS ORDERED: Acetaminophen 500 MG TAB ONE (18:22)
== END 2020-06-23 18:27 | disposition home or self-care (01) ==
LOC: ERS 17:42
DX: R56.9 Unspecified convulsions (principal); D57.1 Sickle-cell disease without crisis; J45.909 Unspecified asthma, uncomplicated; Z79.899 Other long term (current) drug therapy
CPT/HCPCS: 96372; 99284; J1630